=== PATIENT | female | born 1960 | race African-American/Black ===

== ENCOUNTER 2018-04-24 17:15 | Emergency (ER) | payer OTHER ==
[~2018-04-24] VITALS: Ht 144.8 cm; Wt 66.4 kg
[~2018-04-24 17:15] MED LIST: METF-444 PO
[2018-04-24] MEDS ORDERED: ATOR10TA84 PO (17:35)
[2018-04-24] MEDS ORDERED: LISI10TA7 PO (17:35)
[2018-04-24] MEDS ORDERED: GLIP5TAB11 PO (17:35)
[2018-04-24] MEDS ORDERED: AMLO5TAB66 PO (17:35)
[2018-04-24] MEDS ORDERED: GABA-529 PO (17:35)
[2018-04-24] MEDS ORDERED: ALOG25TA2 PO (17:35)
[2018-04-24] MEDS ORDERED: KETOROLAC TROMETHAMINE 10 MG TABLET PO ONE (17:45)
[2018-04-24] MEDS ORDERED: CYCLOBENZAPRINE HCL 10 MG TABLET PO ONE (17:45)
[2018-04-24 17:58] LABS: GLUCOSE,POINT OF CARE 311 MG/DL (70-110)
[2018-04-24] MEDS ORDERED: SODIUM CHLORIDE 0.9% 1,000 ML IV ONE (19:00)
[2018-04-24 19:19] VITALS: BP 141/79
[2018-04-24 19:23] LABS: GLUCOSE,POINT OF CARE 236 MG/DL (70-110)
== END 2018-04-24 19:22 | disposition home or self-care (01) ==
LOC: EMS 17:17
DX: S43.401A Unspecified sprain of right shoulder joint, initial encounter (principal); J44.9 Chronic obstructive pulmonary disease, unspecified; F17.210 Nicotine dependence, cigarettes, uncomplicated; E11.65 Type 2 diabetes mellitus with hyperglycemia; Z79.899 Other long term (current) drug therapy; V43.62XA Car passenger injured in collision with other type car in traffic accident, initial encounter; Y93.89 Activity, other specified; Y92.89 Other specified places as the place of occurrence of the external cause; Y99.8 Other external cause status
CPT/HCPCS: 99284; J7030

== ENCOUNTER → 2023-09-24 | Emergency (ER) | payer OTHER ==
[~2023-09-24] VITALS: Ht 154.9 cm; Wt 70.0 kg
[~2023-09-24] MED LIST changes: +ALBU18HF12 IH; +ALOG25TA2 PO; +AMLO5TAB66 PO; +ATOR10TA PO; +AZIT250T9 PO; +GABA-1216 PO; +GLIP5TAB15 PO; +LISI10TA24 PO; +PRED-554 PO
[2023-09-24 03:36] LABS: COVID AG,FIA SOURCE NASAL SWAB
[2023-09-24 03:59] LABS: INFLUENZA TYPE A NEGATIVE FOR TYPE A (NEGATIVE); INFLUENZA TYPE B NEGATIVE FOR TYPE B (NEGATIVE); SARS-COV2 (COVID) ANTIGEN,FIA Negative (Negative)
[2023-09-24 04:40] LABS: EOSINOPHILS % (AUTO) 1.6 % (1.0-6.0); HEMATOCRIT 38.1 % (36-46); HEMOGLOBIN 12.4 g/dL (12.0-16.0); LYMPHOCYTES # (AUTO) 2.7 K/uL (1.0-4.8); LYMPHOCYTES % (AUTO) 30.6 % (22.0-44.0); MEAN CORPUSCULAR HEMOGLOBIN 28.1 pg (26.0-34.0); MEAN CORPUSCULAR HGB CONC 32.6 G/dL (31.0-37.0); MEAN CORPUSCULAR VOLUME 86 fL (80-100); MONOCYTES # (AUTO) 0.7 K/uL (0.1-1.0); MONOCYTES % (AUTO) 7.6 % (2.0-9.0); NEUTROPHILS # (AUTO) 5.3 K/uL (1.8-7.7); NEUTROPHILS % (AUTO) 59.2 % (40.0-70.0); PLATELET COUNT (AUTO) 291 K/uL (150-450); RED BLOOD CELL COUNT(AUTO) 4.42 MIL/uL (4.00-5.20)
[2023-09-24 04:50] LABS: ANION GAP 5 mmol/L (8-16); CALCIUM, TOTAL 9.4 mg/dL (8.8-10.5); CARBON DIOXIDE 30 mmol/L (22-29); CHLORIDE 100 mmol/L (98-107); CREATININE 0.69 mg/dL (0.60-1.30); GLOMERULAR FILTR. RATE CALC > 60 mL/min (>60); GLUCOSE,RANDOM 247 mg/dL (70-110); POTASSIUM 4.1 mmol/L (3.5-5.1); SODIUM SERUM 135 mmol/L (136-145); UREA NITROGEN, BLOOD 13 mg/dL (7-18)
[2023-09-24 04:56] LABS: ALANINE AMINOTRANSFERASE 16 U/L (12-78); ALBUMIN 3.2 g/dL (3.4-5.0); ALKALINE PHOSPHATASE 119 U/L (46-116); ASPARTATE AMINOTRANSFERASE 8 U/L (15-37); BILIRUBIN,TOTAL 0.2 mg/dL (0.1-1.0); TOTAL PROTEIN, SERUM 7.2 g/dL (6.4-8.2)
[2023-09-24 05:01] VITALS: BP 152/79; PULSE 72; RESP 18; TEMP 99.1
== END | disposition still patient (30) ==
LOC: EMS 03:14
DX: J40 Bronchitis, not specified as acute or chronic (principal); J44.89 Other specified chronic obstructive pulmonary disease; E11.9 Type 2 diabetes mellitus without complications; F17.210 Nicotine dependence, cigarettes, uncomplicated; Z90.710 Acquired absence of both cervix and uterus; Z98.51 Tubal ligation status; Z20.822 Contact with and (suspected) exposure to COVID-19
CPT/HCPCS: 71045; 80053; 85025; 87804; 99284; 36415-L1; 36415-TC

== ENCOUNTER 2024-07-06 07:37 | Emergency (ER) | payer OTHER ==
[~2024-07-06] VITALS: Ht 147.3 cm; Wt 60.0 kg
[~2024-07-06 07:37] MED LIST changes: -AZIT250T9 PO
[2024-07-06 07:49] VITALS: BP 153/86; TEMP 98.4
[2024-07-06] MEDS ORDERED: EMPA25TA3 PO (07:52)
[2024-07-06] MEDS ORDERED: SITA50 PO (07:52)
[2024-07-06 07:55] LABS: COVID AG,FIA SOURCE NASAL SWAB
[2024-07-06 08:06] LABS: GLUCOMETER DEV NAME(LOC) ER.7; GLUCOSE,POINT OF CARE 218 MG/DL (70-110)
[2024-07-06 08:23] LABS: SARS-COV2 (COVID) ANTIGEN,FIA Negative (Negative)
[2024-07-06 08:24] LABS: INFLUENZA TYPE A NEGATIVE FOR TYPE A (NEGATIVE); INFLUENZA TYPE B NEGATIVE FOR TYPE B (NEGATIVE)
[2024-07-06] MEDS: PredniSONE 20 MG TABLET PO ONE (08:35)
[2024-07-06] MEDS: BENZONATATE 100 MG CAPSULE PO ONE (08:35)
[2024-07-06 09:01] VITALS: PULSE 89; RESP 18; O2SAT 92
[2024-07-06] MEDS: IPRATROPIUM BROMIDE 0.5 MG/2.5 ML NEB SOLUTION NEB ONE (09:01)
[2024-07-06] MEDS: ALBUTEROL SULFATE 2.5 MG/0.5 ML NEB SOLUTION NEB ONE (09:01)
[2024-07-06 09:13] VITALS: PULSE 89; RESP 18; O2SAT 96
[2024-07-06] MEDS ORDERED: AZIT-164 PO (10:44)
[2024-07-06] MEDS ORDERED: PRED-554 PO (10:44)
[2024-07-06] MEDS ORDERED: BENZ-227 PO (11:12)
[2024-07-06] MEDS: AZITHROMYCIN 500 MG TABLET PO ONE (11:15)
[2024-07-06] MEDS: ALBUTEROL SULFATE HFA 90 MCG/PUFF 8 GM INHALER IH ONE (11:15)
== END 2024-07-06 11:16 | disposition home or self-care (01) ==
LOC: EMS 07:37
DX: J44.9 Chronic obstructive pulmonary disease, unspecified (principal); E11.9 Type 2 diabetes mellitus without complications; F17.210 Nicotine dependence, cigarettes, uncomplicated; Z90.710 Acquired absence of both cervix and uterus; Z98.51 Tubal ligation status; Z20.822 Contact with and (suspected) exposure to COVID-19
CPT/HCPCS: 99284; 71046; 87426; 82962; 87804; 94640; J0456; J7512; J3535; J7613

== ENCOUNTER 2024-09-07 02:43 | Emergency (ER) | payer OTHER ==
[~2024-09-07] VITALS: Ht 142.2 cm; Wt 59.1 kg
[~2024-09-07 02:43] MED LIST changes: +AZIT-164 PO; +BENZ-227 PO; +EMPA25TA3 PO; -GLIP5TAB15 PO; -METF-444 PO; +SITA50 PO
[2024-09-07 02:46] VITALS: TEMP 97.9
[2024-09-07] MEDS: TraMADol HCL 50 MG TABLET PO ONE (04:40)
[2024-09-07] MEDS: LIDOCAINE 5% TRANSDERMAL PATCH TD ONE (05:24)
[2024-09-07] MEDS ORDERED: TRAM50TA5 PO (05:39)
[2024-09-07] MEDS ORDERED: LIDO700A15 TP (05:39)
[2024-09-07] MEDS: HYDROCODONE/ACETAMINOPHEN 5-325 MG TABLET PO ONE (06:02)
[2024-09-07] MEDS: KETOROLAC TROMETHAMINE 30 MG/ML VIAL IM ONE (06:03)
[2024-09-07 06:08] VITALS: BP 144/95; PULSE 69; RESP 19; O2SAT 97
== END 2024-09-07 06:12 | disposition home or self-care (01) ==
LOC: EMS 02:43
DX: M25.511 Pain in right shoulder (principal); J44.89 Other specified chronic obstructive pulmonary disease; E11.9 Type 2 diabetes mellitus without complications; F17.210 Nicotine dependence, cigarettes, uncomplicated; Z90.710 Acquired absence of both cervix and uterus; Z98.51 Tubal ligation status
CPT/HCPCS: 99284; 82962; 73030; 96372; J1885

== ENCOUNTER 2025-06-10 02:31 | Emergency (ER) | payer OTHER ==
[~2025-06-10] VITALS: Ht 144.8 cm; Wt 61.4 kg
[~2025-06-10 02:31] MED LIST changes: -AZIT-164 PO; +LIDO-57 TP; +TRAM50TA5 PO
[2025-06-10 02:34] VITALS: TEMP 98.2
[2025-06-10 02:56] LABS: GLUCOMETER DEV NAME(LOC) ER.7; GLUCOSE,POINT OF CARE 179 MG/DL (70-110)
[2025-06-10] MEDS ORDERED: METH-812 PO (04:34)
[2025-06-10] MEDS: KETOROLAC TROMETHAMINE 30 MG/ML VIAL IM ONE (04:36)
[2025-06-10] MEDS: ACETAMINOPHEN 500 MG TABLET PO ONE (04:37)
[2025-06-10 04:54] VITALS: BP 182/89; PULSE 68; RESP 16; O2SAT 95
== END 2025-06-10 05:01 | disposition home or self-care (01) ==
LOC: EMS 02:32
DX: M62.830 Muscle spasm of back (principal); J44.1 Chronic obstructive pulmonary disease with (acute) exacerbation; E11.9 Type 2 diabetes mellitus without complications; F17.210 Nicotine dependence, cigarettes, uncomplicated; Z85.3 Personal history of malignant neoplasm of breast; Z90.710 Acquired absence of both cervix and uterus; Z79.899 Other long term (current) drug therapy
CPT/HCPCS: 99283; 82962; 96372; J1885